=== PATIENT | female | born 1975 | race Caucasian/White ===

== ENCOUNTER → 2020-03-01 | Day surgery (SDC) | payer OTHER ==
[~2020-03-01] MED LIST: ACETAMINOPHEN325 M1 PO; CALCIUM 600+D1 EACH PO; CLARITIN10 MG PO; COLACE 100 MG100 MG PO; FLUOXETINE HCL40 MG PO; IBUPROFEN 600600 M1 PO; OXYCODONE HCL 55 MG PO; OXYCODONE HCL5 MG PO; PEG3350510 GM PO; VALSARTAN320 MG PO
[2020-03-01 06:34] LABS: HEMATOCRIT 42.2 % (37.0-47.0); HEMOGLOBIN 14.5 gm/dL (12.0-15.0); MCH 30.7 pg (26.0-34.0); MCHC 34.3 g/dL (28.0-37.0); MCV 89.6 fL (80.0-100.0); RBC 4.7 mil/uL (4.20-5.00); WBC 6.5 thou/uL (4.0-11.0)
[2020-03-01 06:39] LABS: CALCIUM 8.8 mg/dL (8.5-10.1); CREATININE 0.8 mg/dL (0.6-1.3); POTASSIUM 4.1 mmol/L (3.5-5.1)
[2020-03-01 06:44] LABS: TOTAL BILIRUBIN 0.5 mg/dL (<0.1-1.0)
--- NOTE | 2020-03-03 11:08 | PATH ---
[address] [address] PATHOLOGY RPT PROCEDURE Name: JESS MORALEZ Room: [facility].#: [id number] Admission: 03/01/20 Date of : 79 Discharge: Report #: [id number] Path Case #: [id number] [facility] Accession Number: [id number] . 01 Material submitted: . gallbladder - GALLBLADDER AND CONTENTS . 01 Clinical history: . SYMPTOMATIC CHOLELITHIASIS . 02 Diagnosis: Gallbladder and contents: - Chronic cholecystitis and cholelithiasis. (KALEN/db; 03/02/2020) LBQ 03/02/2020 1709 Local . 02 Electronically signed: . Jake Anne MD, Pathologist NPI- [id number] . 01 Gross description: . The specimen is received in formalin, labeled "Jess Quique, gallbladder and contents". Received is a previously opened gallbladder measuring 8.7 x 2.9 x 1.4 cm in greatest dimensions displaying an adipose-covered serosal surface. Opening the specimen reveals a velvety, pink-dailey mucosa with a gallbladder wall thickness of 0.1 cm. A single large black, and granular calculus is present, and no masses or lesions are noted grossly. Band Machine Operator sections, to include the proximal margin, are submitted in cassette A1. (CAA; 03/01/2020) QA/QA 03/02/2020 1708 Local . 02 Pathologist provided ICD-10: K80.10 . 02 CPT . 901766 Specimen Comment: A courtesy copy of this report has been sent to [phone], [phone] Specimen Comment: [id number] Specimen Comment: Report sent to / DR KIMBLE Performed at: [address], [place] [id number] MD Chase Dillard MD Phone: [phone] [facility]: [facility] [address], [place], [place] [id number] MD Jake Anne MD Phone: [phone]
== END | disposition home or self-care (01) ==
LOC: M.SUR 06:12
PROVIDERS: ATTEND Surgery
DX: K80.10 Calculus of gallbladder with chronic cholecystitis without obstruction (principal); Z79.899 Other long term (current) drug therapy; Z98.890 Other specified postprocedural states